=== PATIENT | male | born 1965 | race Caucasian/White ===

== ENCOUNTER 2018-04-26 07:31 | Day surgery (SDC) | payer OTHER ==
[2018-04-26] MEDS ORDERED: PROPOFOL 20 ML ×2 (09:19→10:08)
== END 2018-04-26 14:53 | disposition home or self-care (01) ==
LOC: GIL 07:31
DX: Z12.11 Encounter for screening for malignant neoplasm of colon (principal); K64.8 Other hemorrhoids; D12.4 Benign neoplasm of descending colon; E03.9 Hypothyroidism, unspecified
CPT/HCPCS: 45380; 88305